=== PATIENT | male | born 1995 | race Caucasian/White ===

== ENCOUNTER 2016-06-19 17:37 | Emergency (ER) | payer MEDICAID ==
[2016-06-19 17:47] VITALS: BP 126/69; PULSE 80; RESP 16; TEMP 97.3; O2SAT 97
[2016-06-19] MEDS ORDERED: DEXAMETHASONE VARIABLE DOSE IVP/PO ONE (19:18)
[2016-06-19] MEDS ORDERED: DEXAMETHASONE 4 MG TAB ONE (19:18)
--- NOTE | 2016-06-19 19:21 | EDPHY ---
H & P Stated Complaint: Sore throat x 5 days;no fever;prod cough (green mucous) Time Seen by Provider: 06/19/16 19:15 HPI/ROS: CHIEF COMPLAINT: Pharyngitis HISTORY OF PRESENT ILLNESS: Patient is a 21-year-old man who comes to the emergency department complaining of a sore throat. He has also had a mild cough , and sinus congestion since Tuesday. He does not have any abdominal pain. No vomiting or diarrhea. No headache or neck stiffness. No fever. REVIEW OF SYSTEMS: Constitutional: denies: chills, fever, recent illness, recent injury EENTM: See HPI Respiratory: denies: cough, shortness of breath Cardiac: denies: chest pain, irregular heart rate, lightheadedness, palpitations Gastrointestinal/Abdominal: denies: abdominal pain, diarrhea, nausea, vomiting, blood streaked stools Genitourinary: denies: dysuria, frequency, hematuria, pain Musculoskeletal: denies: joint pain, muscle pain Skin: denies: lesions, rash, jaundice, bruising Neurological: denies: headache, numbness, paresthesia, tingling, dizziness, weakness Hematologic/Lymphatic: denies: blood clots, easy bleeding, easy bruising Immunologic/allergic: denies: HIV/AIDS, transplant EXAM: GENERAL: Well-appearing, well-nourished and in no acute distress. HEAD: Atraumatic, normocephalic. EYES: Pupils equal round and reactive to light, extraocular movements intact, sclera anicteric, conjunctiva are normal. ENT: Erythematous pharynx with ulceration, no exudate, no abscess Moist mucous membranes. NECK: Normal range of motion, supple without lymphadenopathy or JVD. LUNGS: Breath sounds clear to auscultation bilaterally and equal. No wheezes rales or rhonchi. HEART: Regular rate and rhythm without murmurs, rubs or gallops. ABDOMEN: Soft, nontender, normoactive bowel sounds. No guarding, no rebound. No masses appreciated. BACK: No CVA tenderness, no spinal tenderness, step-offs or deformities EXTREMITIES: Normal range of motion, no pitting or edema. No clubbing or cyanosis. NEUROLOGICAL: Cranial nerves II through XII grossly intact. Normal speech, normal gait. 5/5 strength, normal movement in all extremities, normal sensation PSYCH: Normal mood, normal affect. SKIN: Warm, dry, normal turgor, no visible rashes or lesions. Source: Patient Exam Limitations: No limitations - Personal History Current Tetanus Diphtheria and Acellular Pertussis (TDAP): Yes - Medical/Surgical History Hx Asthma: No Hx Chronic Respiratory Disease: No Hx Diabetes: No Hx Cardiac Disease: No Hx Renal Disease: No Hx Cirrhosis: No Hx Alcoholism: No Hx HIV/AIDS: No Hx Splenectomy or Spleen Trauma: No Other PMH: none - Family History Significant Family History: No pertinent family hx - Social History Smoking Status: Never smoked Alcohol Use: Sober Drug Use: None Constitutional: Initial Vital Signs Temperature (C) 36.3 C 06/19/16 17:41 Heart Rate 80 06/19/16 17:41 Respiratory Rate 16 06/19/16 17:41 Blood Pressure 126/69 H 06/19/16 17:41 O2 Sat (%) 97 06/19/16 17:41 O2 Delivery Mode Room Air Allergies/Adverse Reactions: Penicillins Allergy (Severe, Verified 11/09/15 17:31) throat closes up Home Medications: Medication Instructions Recorded NK [No Known Home Meds] 06/19/16 Medical Decision Making ED Course/Re-evaluation: The patient's rapid strep is negative. I will start him on Decadron for pain control and encouraged rest and fluids and antipyretics. He has had 3 previous tests for the same and all of but negative for strep. He has had mononucleosis in the past. This does not feel similar. He understands and agrees with this plan and declines further workup or testing at this time. Discussed indications for returning as well as follow-up. Differential Diagnosis: Partial list of the Differential diagnosis considered include but were not limited to; pharyngitis, strep throat, peritonsillar abscess, upper respiratory tract infection and although unlikely based on the history and physical exam, I also considered mononucleosis, pneumonia, meningitis. I discussed these differential diagnoses and the plan with the patient as well as the usual and expected course. The patient understands that the diagnosis is provisional and that in medicine we are not always correct and that further workup is often warranted. Usual and customary warnings were given. All of the patient's questions were answered. The patient was instructed to return to the emergency department should the symptoms at all worsen or return, otherwise to followup with the physician as we discussed. - Data Points Laboratory Results: 06/19/16 06/19/16 Unknown 17:40 Group A Strep Screen NEGATIVE (NEGATIVE) Group A Strep DNA Pending Medications Given: Discontinued Medications Dexamethasone Sodium Phosphate (Decadron) 10 mg IVP/PO EDNOW ONE Stop: 06/19/16 19:19 Last Admin: 06/19/16 19:22 Dose: 10 mg Departure - Departure Disposition: Home, Routine, Self-Care Clinical Impression: Acute pharyngitis Qualifiers: Pharyngitis/tonsillitis etiology: other specified organisms Qualified Code(s): J02.8 - Acute pharyngitis due to other specified organisms Condition: Fair Instructions: Pharyngitis (ED) Referrals: PAIGE REA [Primary Care Provider] - As per Instructions
== END 2016-06-19 19:25 | disposition home or self-care (01) ==
DX: J02.0 Streptococcal pharyngitis (principal)

== ENCOUNTER 2016-12-31 19:33 | Emergency (ER) | payer MEDICAID ==
[2016-12-31 19:41] VITALS: RESP 16
--- NOTE | 2016-12-31 20:43 | EDPHY ---
H & P Stated Complaint: pt c/o sore throat since , ulcers in mouth Time Seen by Provider: 12/31/16 19:53 HPI/ROS: Chief complaint: Sore throat History of present illness: This is a 21-year-old male who presents to the emergency department for evaluation of a sore throat. Patient reports the onset of symptoms over the last week. He has had a persistent sore throat. There is associated swelling. He has noted ulcers in the mouth. He has had associated nasal congestion. He denies precipitating factors. Denies alleviating factors. Denies other associated signs or symptoms including no fevers, no trouble talking, swallowing or breathing, no cough, no trouble breathing and no rash. - Personal History Current Tetanus Diphtheria and Acellular Pertussis (TDAP): Unsure - Medical/Surgical History Hx Asthma: No Hx Chronic Respiratory Disease: No Hx Diabetes: No Hx Cardiac Disease: No Hx Renal Disease: No Hx Cirrhosis: No Hx Alcoholism: No Hx HIV/AIDS: No Hx Splenectomy or Spleen Trauma: No Other PMH: none - Social History Smoking Status: Former smoker - Physical Exam Exam: General Appearance: Alert and no distress. Eyes: Pupils equal and round no injection. ENT: Tympanic membranes, external auditory canals, external easr and surrounding soft tissue including over the mastoids are unremarkable. Nasopharynx is not injected. There is no rhinorrhea. Oropharynx is injected. There is trace edema. There is no exudate. There is no asymmetry. The uvula is midline. No elevation of the tongue. There is no hoarseness, no drooling, no trismus, no stridor. Respiratory: Chest is nontender, lungs are clear to auscultation. Cardiac: regular rate and rhythm. Musculoskeletal: Neck is supple and nontender. Extremities have full range of motion and are nontender. Skin: No rashes or lesions. Neurological: Alert and oriented x4. No meningismus. Constitutional: Initial Vital Signs Temperature (C) 37.1 C 12/31/16 19:39 Heart Rate 77 12/31/16 19:39 Respiratory Rate 16 12/31/16 19:39 Blood Pressure 131/64 H 12/31/16 19:39 O2 Sat (%) 98 12/31/16 19:39 O2 Delivery Mode Room Air Allergies/Adverse Reactions: Penicillins Allergy (Severe, Verified 11/09/15 17:31) throat closes up Home Medications: Medication Instructions Recorded NK [No Known Home Meds] 06/19/16 Medical Decision Making ED Course/Re-evaluation: Patient seen under the supervision of my secondary supervising physician Dr. Rodolfo Acevedo. Patient presents to the emergency department for sore throat. He is nontoxic. He appears to have a pharyngitis. Negative strep. Negative mono. No evidence of complications such as abscess formation or meningitis. He is discharged home. Home care is discussed. Return precautions are given. Differential Diagnosis: Included but not limited to pharyngitis, abscess is multiple etiologies, sinusitis - Data Points Laboratory Results: 12/31/16 12/31/16 12/31/16 Unknown 19:42 19:42 Monoscreen NEGATIVE (NEGATIVE) Group A Strep Screen NEGATIVE (NEGATIVE) Group A Strep DNA Pending Departure - Departure Disposition: Home, Routine, Self-Care Clinical Impression: Acute pharyngitis Qualifiers: Pharyngitis/tonsillitis etiology: unspecified etiology Qualified Code(s): J02.9 - Acute pharyngitis, unspecified Condition: Good Instructions: Pharyngitis (ED) Additional Instructions: Follow-up with her primary care doctor for continued evaluation and care Use over the counter cold medication as directed as needed for symptom control If symptoms worsen or new symptoms develop return to the emergency room for recheck Referrals: PAIGE REA [Primary Care Provider] - As per Instructions
[2016-12-31 20:54] VITALS: BP 128/64; PULSE 76; TEMP 98.2; O2SAT 97
== END 2016-12-31 20:55 | disposition home or self-care (01) ==
DX: J02.9 Acute pharyngitis, unspecified (principal); Z87.891 Personal history of nicotine dependence

== ENCOUNTER 2017-03-31 09:09 | Emergency (ER) | payer MEDICAID ==
[2017-03-31 09:12] VITALS: RESP 18
--- NOTE | 2017-03-31 09:17 | EDPHY ---
H & P Stated Complaint: DX'd w/strep on ;more trouble swallowing;voice muffled Time Seen by Provider: 03/31/17 09:17 HPI/ROS: HPI: This is a 21-year-old male presents with Chief Complaint: DX'd w/strep on ;more trouble swallowing;voice muffled Location: Throat Quality: Pain Duration: Since Tuesday Signs and Symptoms: No fever, no chills, no cough, no neck stiffness, no headache, no nausea, no vomiting, no abdominal pain Timing: Constant Severity: Moderate to severe Context: Patient is generally healthy and noticed Tuesday he developed a sore throat with swollen glands in his neck. Tuesday he went to the urgent care and had a positive strep test. Due to his penicillin allergy causing throat closing he was given azithromycin. He is on day 3 of 5 of the antibiotic with no improvement in his symptoms. He states the last time he ate or drank anything was yesterday. The last time he urinated was yesterday evening. He has not been able to eat or drink anything today because of the pain. He has been using aspirin for pain control with mild relief. Modifying Factors: Azithromycin, aspirin no relief Comment: ROS: see HPI Constitutional: No fever, no chills, no weight loss Eyes: No blurred vision Respiratory: No shortness of breath, no cough Cardiovascular: No chest pain Gastrointestinal: No nausea, no vomiting, no diarrhea Genitourinary: No dysuria Extremities: No myalgias Neurologic: No weakness, no numbness Skin: No rashes Hematologic: No bruising, no bleeding MEDICAL/SURGICAL/SOCIAL HISTORY: Medical history: Generally healthy. Does not take any regular medications. 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 Tympanic membranes clear. Oropharynx clear, uvula midline, tonsils 2+ bilaterally with moderate erythema and white exudate and dry oral mucosa. Airway patent. Spotty anterior cervical lymphadenopathy. No meningismus. Cardiovascular: Normal S1/S2, regular rate, regular rhythm, without murmur rub or gallop. PULMONARY/CHEST: Symmetrical and nontender. Clear to auscultation bilaterally. Good air movement. No accessory muscle usage. ABDOMEN: Soft, nondistended, nontender, no rebound, no guarding, no peritoneal signs, no masses or organomegaly. No CVAT. EXTREMITIES: 2/2 pulses, strength 5/5, no deformities, no clubbing, no cyanosis or edema. NEUROLOGICAL: no focal neuro deficits. GCS 15. Speech clear. SKIN: Warm and dry, no erythema. no rash. Good capillary refill. Source: Patient Exam Limitations: No limitations - Personal History Current Tetanus Diphtheria and Acellular Pertussis (TDAP): Yes - Medical/Surgical History Hx Asthma: No Hx Chronic Respiratory Disease: No Hx Diabetes: No Hx Cardiac Disease: No Hx Renal Disease: No Hx Cirrhosis: No Hx Alcoholism: No Hx HIV/AIDS: No Hx Splenectomy or Spleen Trauma: No Other PMH: none - Social History Smoking Status: Former smoker Constitutional: Initial Vital Signs Temperature (C) 36.7 C 03/31/17 09:10 Heart Rate 92 03/31/17 09:10 Respiratory Rate 18 03/31/17 09:10 Blood Pressure 145/82 H 03/31/17 09:10 O2 Sat (%) 96 03/31/17 09:10 O2 Delivery Mode Room Air Allergies/Adverse Reactions: Penicillins Allergy (Severe, Verified 03/31/17 09:09) throat closes up Home Medications: Medication Instructions Recorded AZITHROMYCIN [Z-PACK] 250 mg PO DAILY 03/31/17 Lidocaine 2% Viscous 15 ml PO Q6 PRN #100 ml 03/31/17 predniSONE [predniSONE TAPER] 10 mg PO DAILY 6 Days #1 ea 03/31/17 Medical Decision Making ED Course/Re-evaluation: IV fluids, IV medications ordered Will not repeat strep test as was positive at urgent care. Given 2 L normal saline, IV Decadron, IV Toradol, and oral viscous lidocaine No signs of airway compromise/peritonsillar abscess/Markie's angina 1022: Reassessed patient who reports markedly improvement in throat discomfort. Drinking liquids in the room without difficulty. Advised to complete antibiotic course in script given for steroid taper as well as oral viscous lidocaine, push fluids This patient was seen under the supervision of my secondary supervising physician. Patient's presentation, labs/imaging, treatment and plan of care were discussed with secondary supervising physician. Differential Diagnosis: Differential diagnosis includes but is not limited to strep pharyngitis, tonsillar abscess, Markie's angina. - Data Points Medications Given: Discontinued Medications Dexamethasone (Decadron Injection) 8 mg IVP EDNOW ONE Stop: 03/31/17 09:25 Last Admin: 03/31/17 09:37 Dose: 8 mg Sodium Chloride (Ns) 1,000 mls @ 0 mls/hr IV EDNOW ONE; Wide Open PRN Reason: Protocol Stop: 03/31/17 09:24 Last Admin: 03/31/17 09:37 Dose: 1,000 mls Sodium Chloride (Ns) 1,000 mls @ 0 mls/hr IV EDNOW ONE; Wide Open PRN Reason: Protocol Stop: 03/31/17 09:24 Last Admin: 03/31/17 09:38 Dose: 1,000 mls Ketorolac Tromethamine (Toradol) 30 mg IVP EDNOW ONE Stop: 03/31/17 09:24 Last Admin: 03/31/17 09:37 Dose: 30 mg Lidocaine (Lidocaine 2% Viscous) 15 ml PO EDNOW ONE Stop: 03/31/17 09:24 Last Admin: 03/31/17 09:37 Dose: 15 ml Departure - Departure Disposition: Home, Routine, Self-Care Clinical Impression: Strep pharyngitis Condition: Good Instructions: Strep Throat (ED) Additional Instructions: Please take Tylenol 650 mg every 4 hr and/or ibuprofen 600 mg with food every 8 hr as needed for pain, fever, headache. Drink a minimum of #8, 8 oz glasses of water or fluids electrolyte replacement like Gatorade or Powerade daily. It may be beneficial to suck on popsicles to ease your throat discomfort. You have been given a steroid taper as well as viscous lidocaine to use to help with throat discomfort. Complete your Zithromax in antibiotic course as previously prescribed. Referrals: PAIGE REA [Primary Care Provider] - As per Instructions Prescriptions: Lidocaine 2% Viscous 15 ml PO Q6 PRN #100 ml PRN Reason: Sore Throat predniSONE [predniSONE TAPER] 10 mg PO DAILY 6 Days #1 ea
[2017-03-31] MEDS ORDERED: LIDOCAINE 2% VISCOUS 15 ML UDCUP PO ONE (09:23)
[2017-03-31] MEDS ORDERED: NS 1,000 ML IV ONE ×2 (09:23)
[2017-03-31] MEDS ORDERED: KETOROLAC 30 MG/1 ML SDV IVP ONE (09:23)
[2017-03-31] MEDS ORDERED: DEXAMETHASONE 4 MG/ML VIAL IVP ONE (09:24)
[2017-03-31 11:03] VITALS: BP 122/72; PULSE 83; TEMP 98.4; O2SAT 97
== END 2017-03-31 11:08 | disposition home or self-care (01) ==
DX: J02.0 Streptococcal pharyngitis (principal); E86.9 Volume depletion, unspecified; Z87.891 Personal history of nicotine dependence
CPT/HCPCS: 96374; J1100; J1885